=== PATIENT | male | born 1960 | race Caucasian/White ===

== ENCOUNTER 2017-05-14 03:07 | Inpatient (IN) | payer OTHER ==
[~2017-05-14] VITALS: Ht 170.2 cm; Wt 93.1 kg
[2017-05-14 03:31] VITALS: BP 166/92; RESP 18
[2017-05-14 03:38] VITALS: Ht 170.2 cm; Wt 93.1 kg
[2017-05-14] MEDS ORDERED: ADV25050 INHALATION (04:55)
[2017-05-14] MEDS ORDERED: VANCOMYCIN IV PER PHARMACY XX SCH (06:30)
[2017-05-14] MEDS ORDERED: ONDANSETRON 4 MG INJ IV PRN (06:30)
[2017-05-14] MEDS ORDERED: HYDROCODONE/APAP (5/325) TAB PO PRN (06:30)
[2017-05-14 07:19] VITALS: BP 118/77; RESP 16
[2017-05-14] MEDS: ENOXAPARIN 40 MG/0.4 ML SYG SC SCH (09:00)
[2017-05-14] MEDS: FAMOTIDINE 20 MG TAB PO SCH (09:09)
[2017-05-14] MEDS: LACTOBACILLUS RHAMNOSUS CAP PO SCH ×2 (09:09→20:42)
[2017-05-14] MEDS: SALMETEROL/FLUTICASONE 250/50 INHA INH SCH ×2 (09:09→20:42)
[2017-05-14] MEDS: LEVOFLOXACIN 750MG/D5W (PMX) 150 ML IVPB SCH (09:09)
[2017-05-14] MEDS ORDERED: VANCOMYCIN 1.75 GM in NS 500 ML IVPB SCH (09:30)
[2017-05-14 12:00] LABS: CREATININE 0.86 mg/dl (0.61-1.24)
--- NOTE | 2017-05-14 16:36 | HP ---
Date/Time of Note Date/Time of Note DATE: 05/14/17 TIME: 16:30 Assessment/Plan VTE Prophylaxis VTE Prophylaxis Intervention: LMWH Lines/Catheters IV Catheter Type (from [facility]): Peripheral IV Urinary Cath still in place: No Assessment/Plan Chief Complaint/Hosp Course 1. Cellulitis Vancomycin IV Check A1c Labs and normal limits X-ray of left ankle shows diffuse soft tissue swelling without acute osseous abnormality Prophylaxis: Lovenox Problems: HPI/ROS Admit Date/Time Admit Date/Time May 14, 2017 at 03:15 Hx of Present Illness Patient is a 56-year-old male with no medical history. Patient presents with left lower extremity redness 1 week. Patient has no history of cellulitis in the past. Patient denies having diabetes. Patient was transferred from outside facility for insurance purposes with a diagnosis cellulitis. ROS Constitutional: improved, no complaints Eyes: no complaints ENT: no complaints Respiratory: no complaints Cardiovascular: no complaints Gastrointestinal: no complaints Genitourinary: no complaints Musculoskeletal: no complaints Skin: erythema (Left leg) Neurologic: no complaints Endocrine: no complaints Lymphatic: no complaints Psychological: nl mood/affect, no complaints Immunologic: no complaints PMH/Family/Social Past Medical History Medical History: no pertinent history Past Surgical History Past Surgical Hx: no surgical history Family History Significant Family History: no pertinent family hx Social History Alcohol Use: none Smoking Status: Never smoker Drug Use: none Exam/Review of Systems Vital Signs Vitals Vital Signs Date Time Temp Pulse Resp B/P Pulse Ox O2 Delivery O2 Flow Rate FiO2 05/14/17 07:19 97.7 61 16 118/77 97 Exam Constitutional: alert, oriented Respiratory: clear to auscultation Cardiovascular: regular rate and rhythm Gastrointestinal: soft, No distended Musculoskeletal: No nl extremities to inspection Labs Result Diagram: 05/14/17 1115 Medications Medications Current Medications Levofloxacin/ Dextrose (Levaquin 750 Mg/ D5W 150 ml (Pmx)) 150 ml @ 100 mls/hr Q24H IVPB Last administered on 05/14/17 09:09; Admin Dose 100 MLS/HR; Start 05/14/17 at 08:30 Lactobacillus Acidophilus/ Rhamnosus (Culturelle) 1 cap BID PO Last administered on 05/14/17 09:09; Admin Dose 1 CAP; Start 05/14/17 at 09:00 Ondansetron HCl (Zofran Inj) 4 mg Q6H PRN IV NAUSEA AND/OR VOMITING; Start 05/14 at 06:30 Acetaminophen/ Hydrocodone Bitart ([place] (5/325)) 1 tab Q6H PRN PO pain; Start 05/14/17 at 06:30 Famotidine (Pepcid) 20 mg DAILY PO Last administered on 05/14/17 09:09; Admin Dose 20 MG; Start 05/14/17 at 09:00 Enoxaparin Sodium (Lovenox) 40 mg DAILY SC ; Start 05/14/17 at 09:00 Salmeterol Xinafoate/ Fluticasone 1 inh 1 inh BID INH Last administered on 09:09; Admin Dose 1 INH; Start 05/14/17 at 09:00 Vancomycin HCl/ Sodium Chloride (Vancocin/NS) 250 ml @ 83.333 mls/ hr Q12H IVPB ; Start 05/14/17 at 23:30 SELENA PAGAN May 14, 2017 16:36
[2017-05-14 19:58] VITALS: BP 142/88; RESP 20
[2017-05-15] MEDS: VANCOMYCIN 1.25 GM in SOD CHLORIDE 0.9% 250 ML IVPB SCH ×2 (00:11→11:30)
[2017-05-15 06:09] LABS: ADD SCAN DIFF NO
[2017-05-15 06:19] LABS: BASOPHILS % 0.4 % (0.0-2.0); EOSINOPHILS # 0.4 10^3/ul (0.0-0.5); EOSINOPHILS % 5.2 % (0.0-7.0); HEMATOCRIT 44.5 % (42.0-52.0); HEMOGLOBIN 15.2 g/dl (14.0-18.0); LYMPHOCYTES # 1.6 10^3/ul (0.8-2.9); LYMPHOCYTES % 23.3 % (15.0-51.0); MEAN CORPUSCULAR HEMOGLOBIN 30.7 pg (29.0-33.0); MEAN CORPUSCULAR HGB CONC 34.2 g/dl (32.0-37.0); MEAN CORPUSCULAR VOLUME 89.9 fl (82.0-101.0); MEAN PLATELET VOLUME 9.2 fl (7.4-10.4); MONOCYTE # 0.5 10^3/ul (0.3-0.9); MONOCYTES % 7.6 % (0.0-11.0); NEUTROPHIL # 4.4 10^3/ul (1.6-7.5); NEUTROPHILS % 63.2 % (39.0-77.0); PLATELET COUNT 242 10^3/UL (140-415); RED BLOOD COUNT 4.95 10^6/ul (4.70-6.10); RED CELL DISTRIBUTION WIDTH 12.2 % (11.5-14.5); WHITE BLOOD COUNT 6.9 10^3/ul (4.8-10.8)
[2017-05-15 07:00] LABS: CALCIUM 8.9 mg/dl (8.4-10.2); CREATININE 0.9 mg/dl (0.61-1.24); POTASSIUM 3.8 mmol/L (3.5-5.1)
[2017-05-15 07:00] LABS: CHOL/HDL RATIO 4.8 RATIO
[2017-05-15 07:38] VITALS: BP 126/76; RESP 16
[2017-05-15] MEDS: SALMETEROL/FLUTICASONE 250/50 INHA INH SCH (09:07)
[2017-05-15] MEDS: LACTOBACILLUS RHAMNOSUS CAP PO SCH (09:07)
[2017-05-15] MEDS: FAMOTIDINE 20 MG TAB PO SCH (09:07)
[2017-05-15] MEDS: LEVOFLOXACIN 750MG/D5W (PMX) 150 ML IVPB SCH (09:08)
[2017-05-15] MEDS: ENOXAPARIN 40 MG/0.4 ML SYG SC SCH (09:12)
[2017-05-15] MEDS ORDERED: CEPH-443 PO (12:03)
--- NOTE | 2017-05-15 12:04 | PDOCDIS ---
Discharge Instructions CONDITION Patient Condition: Good HOME CARE INSTRUCTIONS: Diet Instructions: Regular ACTIVITY: Activity Restrictions: No Restrictions FOLLOW UP/APPOINTMENTS Follow-up Plan F/U WITH YOUR PCP IN 1-2 WEEKS SELENA PAGAN May 15, 2017 12:03
--- NOTE | 2017-05-15 18:15 | DS ---
Date/Time of Note Date/Time of Note DATE: 05/15/17 TIME: 18:12 Discharge Summary Admission/Discharge Info Admit Date/Time May 14, 2017 at 03:15 Discharge Date/Time May 15, 2017 at 13:25 Discharge Diagnosis 1. Cellulitis Status post IV antibiotics DC with p.o. antibiotics Hospital Course Patient is a 56-year-old male with no medical history patient presents with cellulitis of the left lower extremity. Patient received vancomycin IV and cellulitis improved. Hemoglobin A1c and lipid panel within normal limits. Patient was found to be stable for discharge on the day of discharge patient's vitals, labs and physical exam are stable. He had no further acute complaints and questions are answered. Patient discharged with p.o. antibiotics. Home Meds Active Scripts Cephalexin* (Keflex*) 500 Mg Capsule, 500 MG PO BID for 14 Days, CAP Prov:SELENA PAGAN 05/15/17 Reported Medications Salmeterol Xinaf/Fluticasone* (Advair*) 250-50 Diskus Inhaler, 1 INH INHALATION BID, #1 INHALER 05/14/17 Primary Care Provider Care Physician No Primary Time spent on discharge: > 30 minutes Pending Labs Laboratory Tests Test 05/15/17 05:20 05/15/17 05:28 05/15/17 11:00 White Blood Count 6.910^3/ul (4.8-10.8) Red Blood Count 4.9510^6/ul (4.70-6.10) Hemoglobin 15.2g/dl (14.0-18.0) Hematocrit 44.5% (42.0-52.0) Mean Corpuscular Volume 89.9fl (82.0-101.0) Mean Corpuscular Hemoglobin 30.7pg (29.0-33.0) Mean Corpuscular Hemoglobin Concent 34.2g/dl (32.0-37.0) Red Cell Distribution Width 12.2% (11.5-14.5) Platelet Count 73993^3/UL (140-415) Mean Platelet Volume 9.2fl (7.4-10.4) Neutrophils % 63.2% (39.0-77.0) Lymphocytes % 23.3% (15.0-51.0) Monocytes % 7.6% (0.0-11.0) Eosinophils % 5.2% (0.0-7.0) Basophils % 0.4% (0.0-2.0) Nucleated Red Blood Cells % 0.0/100WBC (0.0-0.0) Neutrophils # 4.410^3/ul (1.6-7.5) Lymphocytes # 1.610^3/ul (0.8-2.9) Monocytes # 0.510^3/ul (0.3-0.9) Eosinophils # 0.410^3/ul (0.0-0.5) Basophils # 0.010^3/ul (0.0-0.1) Nucleated Red Blood Cells # 0.010^3/ul (0.0-0.0) Hemoglobin A1c 5.9% (0-5.9) Triglycerides Level 109mg/dl (0-149) Cholesterol Level 180mg/dl (100-200) LDL Cholesterol, Calculated 121mg/dl HDL Cholesterol 37mg/dl (28-71) Cholesterol/HDL Ratio 4.8RATIO Sodium Level 139mmol/L (135-144) Potassium Level 3.8mmol/L (3.5-5.1) Chloride Level 106mmol/L (97-110) Carbon Dioxide Level 25mmol/L (21-31) Anion Gap 12 (8-16) Blood Urea Nitrogen 13mg/dl (7-20) Creatinine 0.90mg/dl (0.61-1.24) Glucose Level 105mg/dl (70-220) Calcium Level 8.9mg/dl (8.4-10.2) Magnesium Level 2.0mg/dl (1.7-2.5) Vancomycin Level Trough 11.3ug/ml (10.0-20.0) SELENA PAGAN May 15, 2017 18:15
== END 2017-05-15 13:25 | disposition home or self-care (01) | DRG 603 ==
LOC: MS2 03:15
PROVIDERS: ADMIT Family Medicine; ATTEND Family Medicine
DX: L03.116 Cellulitis of left lower limb (principal)
CPT/HCPCS: 80048; 80061; 80202; 82565; 83036; 83735; 84520; 85025; J1650; J1956; J3370; J7040; J7050